=== PATIENT | male | born 1950 | race Caucasian/White ===

== ENCOUNTER 2019-08-12 07:06 | Day surgery (SDC) | payer MEDICARE, OTHER ==
[~2019-08-12] VITALS: Ht 167.6 cm; Wt 61.7 kg
[~2019-08-12 07:06] MED LIST: COLESTID 1GM1 G PO; NORCO 325 MG-51 TAB PO; PRIL40; ZOFRAN 4MG T4 MG/TAB PO; ZOFRAN ODT4 MG PO
[2019-08-12 07:43] VITALS: BP 135/86; PULSE 72; TEMP 97.9
[2019-08-12 08:55] VITALS: BP 109/78; PULSE 65; TEMP 97.6
--- NOTE | 2019-08-12 08:55 | NUR ---
The patient arrived back to [facility] at this time. The patient appears drowsy but ambulated from the cart to the recliner in his room with the stand by assistance of two nurses. Post procedure vital signs were started at this time. at bedside. Call light is within reach. Will continue to monitor the patient.
[2019-08-12 09:10] VITALS: BP 115/73; PULSE 59
--- NOTE | 2019-08-12 09:10 | NUR ---
The patient reports feeling nauseated and was given a PRN dose of Zofran 4 mg IV at this time. The patient has given some ice water to sip on and appears to be tolerating it well.
[2019-08-12 09:25] VITALS: BP 115/73; PULSE 59
--- NOTE | 2019-08-12 09:25 | NUR ---
The patient states his stomach is "feeling better" and he verbalizes a desire to be discharged home. The patient's IV to his right forearm was removed and a pressure dressing was applied to the site. The nurse instructed the patient to get dressed and notify the staff when he is ready to be escorted out.
--- NOTE | 2019-08-12 09:38 | NUR ---
The patient is dressed and ready to be escorted out. The patient was escorted out via wheelchair to a private vehicle by TANIA Mario. The patient's belongings and discharge paperwork were sent with him. The patient's is present to drive him home.
== END 2019-08-12 09:38 | disposition home or self-care (01) ==
LOC: SDCO 07:06
DX: Z12.11 Encounter for screening for malignant neoplasm of colon (principal); K57.30 Diverticulosis of large intestine without perforation or abscess without bleeding; K64.0 First degree hemorrhoids; Z88.5 Allergy status to narcotic agent; K21.9 Gastro-esophageal reflux disease without esophagitis; Z80.0 Family history of malignant neoplasm of digestive organs; Z83.71 Family history of colonic polyps; Z83.79 Family history of other diseases of the digestive system; Z90.49 Acquired absence of other specified parts of digestive tract; Z86.010 Personal history of colon polyps
CPT/HCPCS: J2250; J2405; J3010; J7030

== ENCOUNTER 2020-10-11 12:34 | Observation (INO) | payer MEDICARE, OTHER ==
[~2020-10-11] VITALS: Ht 167.6 cm; Wt 62.7 kg
[2020-10-11 13:02] LABS: BASO # 0.1 (0.0-0.2); BASO % 0.5 % (0.0-2.0); EOS # 0.1 (0.0-0.7); EOS % 0.9 % (0-4.0); HEMATOCRIT 39.8 % (42.0-52.0); HEMOGLOBIN 13.6 g/dl (13.5-18.0); LYMPH # 1.6 (1.2-3.4); LYMPH % 15.1 % (20.0-51.0); MEAN CELL VOLUME 89 fl (80.0-100.0); MEAN CORPUSCULAR HEMOGLOBIN 30 pg (27.0-31.0); MEAN CORPUSCULAR HGB CONC 34 g/dl (33.0-37.0); MONO # 0.6 (0.1-0.6); MONO % 5.4 % (1.7-9.3); PLATELET COUNT 190 K/mm3 (130-400); RED BLOOD COUNT 4.48 M/mm3 (4.20-5.60); REDCELL DISTRIBUTION WIDTH-CV 14.1 % (11.5-14.5)
[2020-10-11 13:12] LABS: BILIRUBIN,TOTAL 0.6 mg/dL (0.0-1.0); CALCIUM 8.8 mg/dL (8.4-10.2); CREATININE, serum 1.09 (0.66-1.25); POTASSIUM 3.7 mmol/L (3.4-5.0)
[2020-10-11 15:36] LABS: INR 1.1 (0.8-3.0); PROTHROMBIN TIME 12.5 SECONDS (9.7-12.8)
[2020-10-11 16:56] VITALS: BP 131/62; PULSE 71; TEMP 99.7
--- NOTE | 2020-10-11 19:08 | NUR ---
Patient doing well since up from ER. DR. Meza in to see patient this afternoon. SCDS to BLE. Patient has abrasions to SANYA, Left fingers and left neck. Patient has been up to restroom, ambulated with x1 assist. Patient denies further needs at this time. Reported off to speech and hearing director.
[2020-10-11 19:52] VITALS: BP 140/53; PULSE 73; TEMP 97.6
[2020-10-11 19:56] VITALS: BP 115/65; PULSE 59; TEMP 98.3
[2020-10-11 23:58] VITALS: BP 117/60; PULSE 53; TEMP 97.6
[2020-10-12 04:28] VITALS: BP 115/74; PULSE 53; TEMP 98.3
--- NOTE | 2020-10-12 06:08 | NUR ---
Patient resting in bed most of the shift. Having a lot of pain to his back. Scheduled tylenol administered. Patient denied needing additional pain meds. Fluids infusing to left AC. Got up to the bathroom with standby assist.
[2020-10-12 06:50] LABS: BASO % 0.4 % (0.0-2.0); EOS # 0.2 (0.0-0.7); GRAN # 4.9 (1.4-6.5); HEMATOCRIT 40.1 % (42.0-52.0); HEMOGLOBIN 13.3 g/dl (13.5-18.0); LYMPH # 1.5 (1.2-3.4); MEAN CELL VOLUME 92 fl (80.0-100.0); MEAN CORPUSCULAR HEMOGLOBIN 30 pg (27.0-31.0); MEAN CORPUSCULAR HGB CONC 33 g/dl (33.0-37.0); MEAN PLATELET VOLUME 10.4 fl (7.4-10.4); MONO # 0.8 (0.1-0.6); MONO % 10.3 % (1.7-9.3); PLATELET COUNT 164 K/mm3 (130-400); RED BLOOD COUNT 4.38 M/mm3 (4.20-5.60); REDCELL DISTRIBUTION WIDTH-CV 14.4 % (11.5-14.5)
[2020-10-12 07:03] LABS: ALBUMIN 3.4 gm/dL (3.5-5.0); BILIRUBIN,TOTAL 0.7 mg/dL (0.0-1.0); CALCIUM 8.7 mg/dL (8.4-10.2); CREATININE, serum 1.01 (0.66-1.25); POTASSIUM 4.1 mmol/L (3.4-5.0); TOTAL PROTEIN 6.2 gm/dL (6.4-8.2)
[2020-10-12 07:50] VITALS: BP 146/91; PULSE 54; TEMP 98.3
[2020-10-12] MEDS ORDERED: PERCOCET 325 MG1 TA2 PO ×3 (08:40→11:07)
--- NOTE | 2020-10-12 08:46 | NUR ---
Dr. Meza in to see patient.
--- NOTE | 2020-10-12 10:00 | NUR ---
Photo Tube Assembler met with patient and patient's , Britta (ph#[phone]) to discuss discharge planning. Patient lives in [place] with his and sees Dr. Aguilar for primary care. Patient obtains medications from [facility] in [place] with no difficulties. Patient does not use DME and is independent with [facility]. Patient states he was helping someone paint when he fell down some stairs. Patient states he has been up to the bathroom twice today and feels comfortable returning home today. Britta has no questions or concerns about patient returning home today. Patient reports he has Advance Directives although SW did not locate abby in EMR. Patient to discharge home today.
--- NOTE | 2020-10-12 10:00 | NUR ---
Patient doing well this morning, spouse at bedside. Pain medications given prior to discharge for pain 5/10 generalized. Discharge education provided to patient. Educated on new medications and medicaiton safety. All questions answered. ALL questions answered, INT discontinued, catheter tip intact. Denies further needs at this time. Patient out by wheelchair with surgical staff and family.
== END 2020-10-12 10:00 | disposition home or self-care (01) ==
LOC: COL.ER 12:34 → SURG 14:46
PROVIDERS: Family Medicine; ADMIT Surgery
DX: R55 Syncope and collapse (principal); J93.9 Pneumothorax, unspecified; F17.210 Nicotine dependence, cigarettes, uncomplicated; F07.81 Postconcussional syndrome; W11.XXXA Fall on and from ladder, initial encounter; Z88.5 Allergy status to narcotic agent; Z79.899 Other long term (current) drug therapy
CPT/HCPCS: A9284; G0378; J1170; J2405; J7120; Q9967

== ENCOUNTER → 2021-10-04 | Outpatient (CLI) | payer MEDICARE, OTHER ==
[~2021-10-04] MED LIST changes: +PERCOCET 325 MG1 TA2 PO
== END ==
LOC: COL.RAD 13:32
DX: Z12.2 Encounter for screening for malignant neoplasm of respiratory organs (principal); F17.210 Nicotine dependence, cigarettes, uncomplicated